=== PATIENT | male | born 2000 | race Caucasian/White ===

== ENCOUNTER 2021-01-03 23:32 | Emergency (ER) | payer OTHER, SELFPAY ==
[2021-01-03 23:40] VITALS: BP 144/88; PULSE 78; RESP 14; TEMP 36.7; O2SAT 96
--- NOTE | 2021-01-03 23:52 | ED_ITS ---
HPI - General Adult General Chief complaint: Psychiatric Symptoms Stated complaint: needs to talk to someone, not doing mentally well Time Seen by Provider: 01/03/21 23:41 Source: patient Mode of arrival: Ambulatory Limitations: no limitations History of Present Illness HPI narrative: Patient is an otherwise healthy 20-year-old male who is here for evaluation of depressive symptoms. He is new to the area. He is active duty [employer]. He states that he recently was given orders to the local area but his had to stay back in [facility]. There were some circumstances surrounding this that he felt were unfair and was essentially forced to come here because of a mixup of some paperwork and not being able to could locate with his . There is also issues with he was initially told that he could s [place] in the barracks but then later was told that he needed to find civilian housing. He is having some money issues as well. He also is unhappy with his job. There has been some issues with his is well. She recently found a lump in her breast which has caused him to become concerned. There has also been some issues with her having trouble becoming . He comes to the emergency department for evaluation because these depressive symptoms. He states that he sometimes has intrusive thoughts of hurting himself but states he would never act on them. He is here asking to talk with a mental health provider. Related Data Allergies Allergy/AdvReac Type Severity Reaction Status Date / Time No Known Drug Allergies Allergy Verified 01/04/21 00:34 Review of Systems Constitutional Constitutional: Denies fever(s) Cardiovascular Cardiovascular: Reports system reviewed and no additional complaints, except as documented Respiratory Respiratory: Reports system reviewed and no additional complaints, except as documented Gastrointestinal Gastrointestinal: Reports system reviewed and no additional complaints, except as documented Integumentary/Breasts Skin/Breast: Reports system reviewed and no additional complaints, except as documented Neurologic Neurologic: Reports system reviewed and no additional complaints, except as documented Psychiatric Psychiatric: Denies anxiety and Reports depression Hematologic/Lymphatic On Anticoagulants: No Allergic/Immunologic Allergic/Immunologic: Reports system reviewed and no additional complaints, except as documented Patient History Medical History Healthy adult Social History Smoking Status: Current some day smoker Exam Initial Vital Signs Initial Vital Signs: Vital Signs Temperature 98.0 F 01/03/21 23:40 Pulse Rate 78 01/03/21 23:40 Respiratory Rate 14 01/03/21 23:40 Blood Pressure 144/88 H 01/03/21 23:40 Pulse Oximetry 96 01/03/21 23:40 Const General: cooperative and comfortable Limitations: mental status not altered HENMT Head: normal to inspection and normocephalic Resp Effort & Inspection: normal respiratory effort Cardio Rate: regular rate Skin Lesions: no lesions Rashes: no rashes Neuro General: patient alert, patient awake and patient oriented x3 Cognition: normal cognition Speech: speech normal Extrem General: normal to inspection Psych Appearance: grossly normal and well kempt Affect: sad Course Orders Ordered: Discontinued Medications Acetaminophen (Acetaminophen 325 Mg Tablet) 650 mg PO NOW ONE Stop: 01/04/21 00:32 Last Admin: 01/04/21 00:40 Dose: 650 mg Documented by: ANDREA Al Hydrox/Mg Hydrox/Simethicone 20 ml/ Lidocaine HCl 15 ml 0 ml PO NOW ONE Stop: 01/04/21 00:32 Last Admin: 01/04/21 00:40 Dose: 35 ml Documented by: ANDREA Vital Signs Vital signs: Vital Signs - 8 hr 01/03/21 23:40 Temperature 98.0 F Pulse Rate 78 Respiratory Rate 14 Blood Pressure 144/88 H Pulse Oximetry 96 Medical Decision Making [facility] Narrative Medical decision making narrative: Patient is not suicidal. Not homicidal. Unfortunately we do not have mental health provider very mobile at this time of night. I do not feel the patient warrants any admission to the hospital for his symptoms. Patient does not warrant a involuntarily admission either. I tried to provide reassurance to the patient. I did give him information about resources that are available to him through the [facility]. He was given return precautions and follow-up instructions. He expressed understanding and agreement. Discharge Plan Departure Patient Disposition: Home Clinical Impression: Adjustment disorder Instructions: Adjustment Disorder Activity Restrictions/Additional Instructions: Recommend that tomorrow you talk with your command about your situation. The mental health department over on the [place] also has walk-in/sick call hours. You can also talk with the [facility] over on the [place] is they have counselors and other support available for you. For your heartburn I recommend that you purchase famotidine/Pepcid [id number]. You can take this occasionally 1 time a day and it will most likely help your symptoms. You can return to the emergency department at any point for new or worsening symptoms
[2021-01-04] MEDS: MAG HYDROX/ALUMINUM/SIMETH SUS 20 ML, LIDOCAINE VISCOUS 2% 15 ML PO (00:40)
[2021-01-04] MEDS: ACETAMINOPHEN 325 MG TABLET 650 MG PO (00:40)
== END 2021-01-04 01:23 | disposition home or self-care (01) ==
PROVIDERS: Emergency Provider Emergency Medicine
DX: F43.20 Adjustment disorder, unspecified (principal)
CPT/HCPCS: 99283

== ENCOUNTER 2021-01-17 20:51 | Emergency (ER) | payer OTHER, SELFPAY ==
[2021-01-17 20:55] VITALS: BP 120/68; PULSE 104; RESP 24; TEMP 37.3; O2SAT 98
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
[2021-01-17] MEDS: ACETAMINOPHEN 325 MG TABLET 650 MG PO (22:49)
[2021-01-17 22:50] VITALS: BP 122/65; PULSE 66; RESP 20; O2SAT 100
== END 2021-01-17 23:12 | disposition home or self-care (01) ==
PROVIDERS: Emergency Provider Emergency Medicine
DX: R51.9 Headache, unspecified (principal); M54.2 Cervicalgia; R07.89 Other chest pain; W15.XXXA Fall from cliff, initial encounter; Y93.39 Activity, other involving climbing, rappelling and jumping off
CPT/HCPCS: 36415; 71045; 72125; 99284